=== PATIENT | female | born 1980 | race Caucasian/White ===

== ENCOUNTER 2020-11-27 13:25 | Emergency (ER) | payer SELFPAY ==
--- NOTE | 2020-11-27 13:38 | Event Note ---
ED Screening Note ED Screening Note: Patient presents with left flank pain that began yesterday She has associated nausea and vomiting she denies any history of kidney stones She denies any urinary symptoms Has medical history of insulin-dependent diabetes No medication allergies Currently on menstrual cycle This initial assessment/diagnostic orders/clinical plan/treatment(s) is/are subject to change based on patients health status, clinical progression and re- assessment by fellow clinical providers in the ED. Further treatment and workup at subsequent clinical providers discretion. Patient/guardian urged not to elope from the ED as their condition may be serious if not clinically assessed and managed. Initial orders include: Labs, urine
[2020-11-27 13:40] VITALS: BP 143/77
[2020-11-27 14:38] LABS: Basophils % (Auto) 0.3 % (0.0-1.8); Eosinophils # (Auto) 0.1 K/mm3 (0.0-0.4); Eosinophils % (Auto) 0.4 % (0.0-4.3); Hematocrit 38.6 % (30.3-42.9); Lymphocytes # (Auto) 1.3 K/mm3 (1.2-5.4); Lymphocytes % (Auto) 9.2 % (13.4-35.0); Mean Corpuscular HGB Conc 34 % (30-34); Mean Corpuscular Volume 95 fl (79-97); Monocytes # (Auto) 0.4 K/mm3 (0.0-0.8); Monocytes % (Auto) 2.8 % (0.0-7.3); Platelet Count 106 K/mm3 (140-440); Red Blood Count 4.06 M/mm3 (3.65-5.03); Red Cell Distribution Width 12.5 % (13.2-15.2)
[2020-11-27 16:42] LABS: Alanine Aminotransferase 11 units/L (7-56); Albumin 4.2 g/dL (3.9-5); Blood Urea Nitrogen 13 mg/dL (7-17); Calcium 9.2 mg/dL (8.4-10.2); Hemolysis Index 17
[2020-11-27 16:44] LABS: BUN/Creatinine Ratio 26
[2020-11-27 18:18] LABS: Bilirubin,Urine NEG (Negative); Blood,Urine MOD (Negative); Color,Urine Yellow (Yellow); Mucus,Urine FEW /HPF; Urobilinogen,Urine < 2.0 mg/dL (<2.0)
== END 2020-11-28 | disposition left against medical advice (07) ==
LOC: ED 13:25
DX: R11.2 Nausea with vomiting, unspecified (principal); Z53.21 Procedure and treatment not carried out due to patient leaving prior to being seen by health care provider
CPT/HCPCS: 36415; 80053; 81001; 83690; 84703; 85025; 87086

== ENCOUNTER 2022-02-01 05:33 | Inpatient (IN) | payer BC, OTHER ==
[2022-02-01] MEDS ORDERED: ASPIRIN 325 MG TAB PO ONE (05:59)
[2022-02-01 07:24] LABS: Basophils % (Auto) 0.4 % (0.0-1.8); Eosinophils # (Auto) 0.4 K/mm3 (0.0-0.4); Eosinophils % (Auto) 4.3 % (0.0-4.3); Hematocrit 27.2 % (30.3-42.9); Hemoglobin 9.2 gm/dl (10.1-14.3); Lymphocytes # (Auto) 2.7 K/mm3 (1.2-5.4); Lymphocytes % (Auto) 31.6 % (13.4-35.0); Mean Corpuscular HGB Conc 34 % (30-34); Mean Corpuscular Volume 94 fl (79-97); Monocytes # (Auto) 0.7 K/mm3 (0.0-0.8); Monocytes % (Auto) 8.8 % (0.0-7.3); Platelet Count 100 K/mm3 (140-440); Red Cell Distribution Width 12.3 % (13.2-15.2)
[2022-02-01 07:59] LABS: Alanine Aminotransferase 15 units/L (7-56); Albumin 3.8 g/dL (3.9-5); Blood Urea Nitrogen 14 mg/dL (7-17); Hemolysis Index 8
[2022-02-01 08:20] LABS: BUN/Creatinine Ratio 20
[2022-02-01 08:54] LABS: HDL Cholesterol 35 mg/dL (40-59); LDL Cholesterol,Direct 107 mg/dL (50-130)
[2022-02-01] MEDS: ASPIRIN 325 MG TAB PO ONE (09:26)
[2022-02-01] MEDS ORDERED: NITROGLYCERIN 0.4 MG TAB SUBL SL PRN (10:53)
[2022-02-01] MEDS ORDERED: MORPHINE 4 MG/1 ML INJ IV ONE (10:53)
[2022-02-01] MEDS ORDERED: ENOXAPARIN 100 MG/1 ML INJ SUB-Q ONE (10:56)
--- NOTE | 2022-02-01 11:05 | Emergency Department Report ---
ED General Adult HPI - General Chief complaint: Chest Pain Stated complaint: CHEST PAIN PUI?: No Time Seen by Provider: 02/01/22 10:19 Source: patient Mode of arrival: Ambulatory Limitations: No Limitations - History of Present Illness Initial comments: THIS IS A 41 YEAR OLD FEMALE WITH MEDICAL HISTORY OF DIABETES MELLITUS ON INS ULIN OF NOVOLOG 10U CAME IN TODAY WITH CONCERN OF 1 WEEK BURNING MID STERNAL CHEST DISCOMFORT; DENIES RADIATES ANYWHERE ELSE. DENIES ANY OTHER ASSOCIATED SYMPTOMS. STATES SHE WAS A SMOKER 20 YEARS AGO; NOT NOW. DENIES COCAIN USE. DENIES FAMILY WITH [place] <65 YEAR OLD. PATIENT STATES SHE CURRENTLY STILL HAS THE CHEST DISCOMFORT. - Related Data Home Medications Medication Instructions Recorded Confirmed Last Taken Atorvastatin (Nf) [Lipitor] 10 mg PO DAILY 11/23/13 11/23/13 11/23/13 11:30 Insulin Aspart (Nf) [Novolog 6 unit SUB-Q TID 11/23/13 11/23/13 11/23/13 11:30 Flexpen] Allergies Allergy/AdvReac Type Severity Reaction Status Date / Time No Known Allergies Allergy Verified 10/01/15 17:23 ED Review of Systems ROS: Stated complaint: CHEST PAIN Other details as noted in HPI Comment: All other systems reviewed and negative Constitutional: no symptoms reported Eyes: as per HPI ENT: as per HPI Respiratory: no symptoms reported Cardiovascular: as per HPI Endocrine: no symptoms reported Gastrointestinal: as per HPI Genitourinary: as per HPI Musculoskeletal: as per HPI Skin: as per HPI Neurological: as per HPI Psychiatric: as per HPI Hematological/Lymphatic: as per HPI ED Past Medical Hx - Past Medical History Previous Medical History?: Yes Hx Diabetes: Yes Additional medical history: HIGH CHOLESTEROL - Surgical History Hx Cholecystectomy: Yes Additional Surgical History: gall bladder surgery to remove stones. - Social History Smoking Status: Never Smoker Substance Use Type: None - Medications Home Medications: Home Medications Medication Instructions Recorded Confirmed Last Taken Type Atorvastatin (Nf) [Lipitor] 10 mg PO DAILY 11/23/13 11/23/13 11/23/13 11:30 History Insulin Aspart (Nf) [Novolog 6 unit SUB-Q TID 11/23/13 11/23/13 11/23/13 11:30 History Flexpen] ED Physical Exam - General Limitations: No Limitations General appearance: alert, in no apparent distress - Head Head exam: Present: atraumatic, normocephalic, normal inspection - Eye Eye exam: Present: normal appearance, PERRL, EOMI Pupils: Present: normal accommodation - ENT ENT exam: Present: normal exam, normal orophraynx - Neck Neck exam: Present: normal inspection, full ROM - Respiratory Respiratory exam: Present: normal lung sounds bilaterally - Cardiovascular Cardiovascular Exam: Present: regular rate, normal rhythm, normal heart sounds - GI/Abdominal GI/Abdominal exam: Present: soft - Extremities Exam Extremities exam: Present: normal inspection - Back Exam Back exam: Present: normal inspection - Neurological Exam Neurological exam: Present: alert, altered, oriented X3, CN II-XII intact, normal gait - Psychiatric Psychiatric exam: Present: normal affect, normal mood - Skin Skin exam: Present: warm ED Course Vital Signs 02/01/22 02/01/22 02/01/22 05:48 08:57 09:00 Temperature 98.0 F Pulse Rate 87 83 83 Respiratory 18 13 14 Rate Blood Pressure 110/68 O2 Sat by Pulse 100 100 100 Oximetry 02/01/22 02/01/22 02/01/22 09:16 09:30 09:46 Temperature Pulse Rate 75 79 78 Respiratory 16 20 9 L Rate Blood Pressure O2 Sat by Pulse 100 100 Oximetry 02/01/22 02/01/22 02/01/22 10:00 10:16 10:30 Temperature Pulse Rate 80 82 80 Respiratory 16 21 17 Rate Blood Pressure 113/76 113/76 113/76 O2 Sat by Pulse 99 99 100 Oximetry 02/01/22 02/01/22 10:46 11:00 Temperature Pulse Rate 79 82 Respiratory 14 18 Rate Blood Pressure 113/76 99/67 O2 Sat by Pulse 100 99 Oximetry - Reevaluation(s) Reevaluation #1: 02/01/22 11:[address] 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 SPOKE TO BELLA GAMBINO WHO SAW THE PATIENT, RECOMMEND ADMISSION AND LIKELY STRAIGHT TO CATH PATIENT STILL HAS CHEST DISCOMFORT WILL TALK TO [facility]. Reevaluation #2: 02/01/22 13:[address] SANCHEZ AT [facility] AND UNDERSTAND THAT PATIENT WITH ACTIVE CHEST PAIN; UNSTABLE ANGINA AND STATES UNDERSTANDABLE PATIENT WILL NEED TO GO TO ROOM SERVICE WAITER AND WILL CALL TOMORROW TO FOLLOW UP ON THE ROOM SERVICE WAITER RESULT. ED Medical Decision Making - Lab Data Result diagrams: 02/01/22 11:57 02/01/22 07:02 Critical Care Time: Yes Critical care time in (mins) excluding proc time.: 37 Critical care attestation.: If time is entered above; I have spent that time in minutes in the direct care of this critically ill patient, excluding procedure time. Critical Care Time: 37 ED Disposition Clinical Impression: NSTEMI (non-ST elevated myocardial infarction), Unstable angina Disposition: ADMITTED INPATIENT Is pt being admited?: Yes Does the pt Need Aspirin: Yes Condition: Stable
[2022-02-01] MEDS ORDERED: MORPHINE 4 MG/1 ML INJ IV PRN (11:30)
[2022-02-01] MEDS ORDERED: ACETAMINOPHEN 325 MG TAB PO PRN (11:30)
--- NOTE | 2022-02-01 11:33 | Consultation ---
History of Present Illness Consult date: 02/01/22 Requesting physician: CLARISSA KIM Consult reason: chest pain History of present illness: CC: Chest Pain This is a 41-year-old female, known to our practice, with past medical history significant for diabetes and tobacco abuse, who presents to the emergency department after 3 to 4 weeks of intermittent chest pain. She states that on 01/27/22 the pain was "really bad" however, she did not seek treatment at that time because she was scared. She presents today with similar complaints of midsternal, burning chest pain, that is nonradiating. She rates it a 6 out of 10 in severity. She has associated dizziness which has prompted her visit today. Otherwise denies nausea/vomiting, palpitations, syncope or collapse, orthopnea, PND, or bilateral lower extremity swelling. Work-up in the emergency department revealed EKG with sinus rhythm, consider old inferior infarct with some nonspecific ST-T wave abnormalities and anterolateral leads. No STEMI appreciated, as well as elevated troponin. Cardiology is consulted today for chest pain/NSTEMI Past History Past Medical History: diabetes Past Surgical History: cholecystectomy Social history: smoking Family history: no significant family history Medications and Allergies Allergies Allergy/AdvReac Type Severity Reaction Status Date / Time No Known Allergies Allergy Verified 10/01/15 17:23 Home Medications Medication Instructions Recorded Confirmed Last Taken Type Atorvastatin (Nf) [Lipitor] 10 mg PO DAILY 11/23/13 11/23/13 11/23/13 11:30 History Insulin Aspart (Nf) [Novolog 6 unit SUB-Q TID 11/23/13 11/23/13 11/23/13 11:30 History Flexpen] Active Meds: Active Medications Atorvastatin Calcium (Atorvastatin 40 Mg Tab) 40 mg PO QHS AUDI Heparin Sodium (Porcine) (Heparin 10,000 Units/10 Ml Vial) 3,700 unit 60 unit/kg (3700 unit) IV ONCE ONE Stop: 02/01/22 11:17 Heparin Sodium (Porcine) (Heparin 10,000 Units/10 Ml Vial) 2,400 unit 40 unit/kg (2400 unit) IV Q6H PRN PRN Reason: Anti-Xa Assay < 0.1 units/ml Sodium Chloride (Nacl 0.9% 1000 Ml) 1,000 mls @ 75 mls/hr IV ONCE ONE Stop: 02/02/22 00:34 Sodium Chloride (Nacl 0.9% 500 Ml) 500 mls @ 50 mls/hr IV DIRECT AUDI Stop: 02/01/22 21:59 Heparin Sodium/Sodium Chloride (Heparin/ 0.45% Nacl-25,000 Unit/500 Ml) 25,000 unit in 500 mls @ 18.371 mls/hr IV TITRATE AUDI; Protocol Sodium Chloride (Nacl 0.9% 1000 Ml) 1,000 mls @ 75 mls/hr IV DIRECT AUDI Nitroglycerin (Nitroglycerin 0.4 Mg Tab Subl) 0.4 mg SL .Q5MIN PRN PRN Reason: Chest Pain Nitroglycerin (Nitroglycerin 2% Oint 1 Gm) 0.5 inch TP ONCE ONE; Protocol Stop: 02/01/22 11:23 Review of Systems All systems: negative Cardiovascular: chest pain, lightheadedness, no palpitations, no rapid/irregular heart beat, no edema, no syncope, no shortness of breath, no dyspnea on exertion, no paroxysmal nocturnal dyspnea, no high blood pressure, no leg edema Respiratory: no cough, no cough with sputum Gastrointestinal: no nausea, no vomiting Physical Examination Vital Signs Temp Pulse Resp BP Pulse Ox 98.0 F 87 18 110/68 100 02/01/22 05:48 02/01/22 05:48 02/01/22 05:48 02/01/22 05:48 02/01/22 05:48 General appearance: no acute distress HEENT: Positive: EOMI, Normocephaly Neck: Positive: trachea midline Cardiac: Positive: Regular Rate, S1/S2. Negative: Audible Murmur Lungs: Positive: Normal Exam, clear to auscultation Neuro: Positive: Grossly Intact Abdomen: Positive: Unremarkable Female genitourinary: deferred Skin: Negative: Rash (no rash over inspected skin) Extremities: Present: normal. Absent: edema Results 02/01/22 07:02 02/01/22 07:02 Cardiac Enzymes 02/01/22 Range/Units 07:02 AST 16 (5-40) units/L Lipids 02/01/22 Range/Units 07:02 Triglycerides 125 (2-149) mg/dL Cholesterol 168 (50-199) mg/dL HDL Cholesterol 35 L (40-59) mg/dL Cholesterol/HDL Ratio 4.80 % CBC 02/01/22 Range/Units 07:02 WBC 8.5 (4.5-11.0) K/mm3 RBC 2.90 L (3.65-5.03) M/mm3 Hgb 9.2 L (10.1-14.3) gm/dl Hct 27.2 L (30.3-42.9) % Plt Count 100 L (140-440) K/mm3 Lymph # (Auto) 2.7 (1.2-5.4) K/mm3 [place] # (Auto) 0.7 (0.0-0.8) K/mm3 Eos # (Auto) 0.4 (0.0-0.4) K/mm3 Baso # (Auto) 0.0 (0.0-0.1) K/mm3 Comprehensive Metabolic Panel 02/01/22 Range/Units 07:02 Sodium 138 (137-145) mmol/L Potassium 3.5 L (3.6-5.0) mmol/L Chloride 102.4 (98-107) mmol/L Carbon Dioxide 24 (22-30) mmol/L BUN 14 (7-17) mg/dL Creatinine 0.7 (0.6-1.2) mg/dL Glucose 170 H (65-100) mg/dL Calcium 9.0 (8.4-10.2) mg/dL AST 16 (5-40) units/L ALT 15 (7-56) units/L Alkaline Phosphatase 63 (35-129) units/L Total Protein 7.3 (6.3-8.2) g/dL Albumin 3.8 L (3.9-5) g/dL - Imaging and Cardiology EKG: report reviewed, image reviewed EKG interpretations - Telemetry EKG Rhythm: Sinus Rhythm - EKG Sinus rhythms and dysrhythmias: sinus rhythm Repolarization changes or abnormalities: nonspecific abnormality, ST segment, and/or T wave Myocardial infarction: inferior SD (old age inde Assessment and Plan Assessment: NSTEMI - type 1 Chest Pain Anemia Thrombocytopenic - initial plt count 100 Tobacco Abuse DM H/o cholecystectomy EK02/01/2022 sinus rhythm, rate 84, consider old inferior infarct with some nonspecific ST-T wave abnormalities and anterolateral leads CXR: NONE Echocardiogram: Pending Cath: Pending in AM. Recommendations/plan: Check echocardiogram. EKG in am and as needed for change in condition. Initiate heparin gtt. Closely monitor H/H, PLT secondary to a nemia/thrombocytopenia Trend troponins. Initial troponins elevated at 0.879. NPO after midnight for LHC in am. Continue aspirin, statin. No BB secondary to hypotension IVF @ 75 /hr. Nitropaste as tolerated by BP. Morphine as tolerated by BP. Patient seen in conjunction with Dr. Hall who agrees with the assessment and management of this patient. - Patient Problems (1) Chest pain Current Visit: Yes Status: Acute (2) NSTEMI (non-ST elevated myocardial infarction) Current Visit: Yes Status: Acute (3) Diabetes Current Visit: Yes Status: Acute (4) Smoker Current Visit: Yes Status: Acute
--- NOTE | 2022-02-01 11:38 | History and Physical Report ---
History of Present Illness Chief complaint: My chest hurts History of present illness: 41 YO Female with DM, Nicotine Dependence, HLD, Positive family history of CAD presents to ED for evaluation. Pt reports "my chest hurts". Patient states that over the past 4 weeks she has experienced intermittent chest pain. Patient states that pain has become progressively worse over the past 2 days. Patient states that pain is 6-7/10, intermittent initially but has become more constant, worsened with exertion, relieved with rest, relieved with nitro, nonradiating, substernal, crushing in nature. Patient knowledges decreased exercise tolerance. Patient transported to [facility] via private vehicle for further care and evaluation of the aforementioned symptoms. Patient seen and evaluated in the emergency department. All lab and imaging studies reviewed. Patient found to have laboratory findings and clinical symptoms consistent with angina complicated by NSTEMI, as well as nonspecific EKG changes, and clinical symptoms consistent with diastolic CHF. Cardiology team consulted. Patient admitted to telemetry and initiated on ACS protocol as well as CHF protocol. Patient denies fever, chills, productive cough, skin rash, recent contact, unilateral leg swelling, calf pain, individual/family history of DVT/PE/bleeding/blood clotting disorders, or known exposure to COVID-19. No prior admission for review. All medication listed at time of admission has been reconciled. Advanced care planning conducted in ED. Past History Past Medical History: diabetes, hypertension, hyperlipidemia, other (See HPI) Past Surgical History: cholecystectomy Social history: single, smoking Family history: CAD, hypertension Medications and Allergies Allergies Allergy/AdvReac Type Severity Reaction Status Date / Time No Known Allergies Allergy Verified 10/01/15 17:23 Home Medications Medication Instructions Recorded Confirmed Last Taken Type Atorvastatin (Nf) [Lipitor] 10 mg PO DAILY 11/23/13 11/23/13 11/23/13 11:30 Hist ory Insulin Aspart (Nf) [Novolog 6 unit SUB-Q TID 11/23/13 11/23/13 11/23/13 11:30 History Flexpen] Active Meds: Active Medications Acetaminophen (Acetaminophen 325 Mg Tab) 650 mg PO Q4H PRN PRN Reason: Pain MILD(1-3)/Fever >100.5/[place] Albuterol (Albuterol 2.5 Mg/3 Ml Nebu) 2.5 mg IH Q4HRT PRN PRN Reason: Shortness Of Breath Atorvastatin Calcium (Atorvastatin 40 Mg Tab) 40 mg PO QHS AUDI Heparin Sodium (Porcine) (Heparin 10,000 Units/10 Ml Vial) 3,700 unit 60 unit/kg (3700 unit) IV ONCE ONE Stop: 02/01/22 11:17 Heparin Sodium (Porcine) (Heparin 10,000 Units/10 Ml Vial) 2,400 unit 40 unit/kg (2400 unit) IV Q6H PRN PRN Reason: Anti-Xa Assay < 0.1 units/ml Sodium Chloride (Nacl 0.9% 1000 Ml) 1,000 mls @ 75 mls/hr IV ONCE ONE Stop: 02/02/22 00:34 Sodium Chloride (Nacl 0.9% 500 Ml) 500 mls @ 50 mls/hr IV DIRECT AUDI Stop: 02/01/22 21:59 Heparin Sodium/Sodium Chloride (Heparin/ 0.45% Nacl-25,000 Unit/500 Ml) 25,000 unit in 500 mls @ 18.371 mls/hr IV TITRATE AUDI; Protocol Sodium Chloride (Nacl 0.9% 1000 Ml) 1,000 mls @ 75 mls/hr IV DIRECT AUDI Morphine Sulfate (Morphine 4 Mg/1 Ml Inj) 2 mg IV Q6H PRN PRN Reason: Pain , Severe (7-10) Nitroglycerin (Nitroglycerin 0.4 Mg Tab Subl) 0.4 mg SL .Q5MIN PRN PRN Reason: Chest Pain Nitroglycerin (Nitroglycerin 2% Oint 1 Gm) 0.5 inch TP ONCE@1200 AUDI; Protocol Stop: 02/01/22 17:00 Ondansetron HCl (Ondansetron 4 Mg/2 Ml Inj) 4 mg IV Q8H PRN PRN Reason: Nausea And Vomiting Oxycodone/Acetaminophen (Oxycodone /Acetaminophen 5-325mg Tab) 1 tab PO Q8H PRN PRN Reason: Pain, Moderate (4-6) Sodium Chloride (Sodium Chloride 0.9% 10 Ml Flush Syringe) 10 ml IV BID AUDI Sodium Chloride (Sodium Chloride 0.9% 10 Ml Flush Syringe) 10 ml IV PRN PRN PRN Reason: LINE FLUSH Review of Systems Constitutional: no weight loss, no weight gain, no fever, no chills Ears, nose, mouth and throat: no ear pain, no ear discharge, no tinnitis, no nose pain, no nasal congestion Cardiovascular: chest pain, decreased exercise tolerance Respiratory: no cough, no cough with sputum, no excessive sputum, no hemoptysis Gastrointestinal: no abdominal pain, no nausea, no diarrhea, no constipation, no change in bowel habits, no hematemesis Genitourinary Female: no pelvic pain, no flank pain, no dysuria, no urinary frequency, no urgency Rectal: no pain, no incontinence, no bleeding Musculoskeletal: no neck stiffness, no neck pain, no shooting arm pain, no arm numbness/tingling, no low back pain, no shooting leg pain, no leg numbness/tingling Integumentary: no rash, no pruritis, no redness, no sores, no jaundice Neurological: no head injury, no transient paralysis, no weakness, no numbness, no tingling, no syncope, no tremors Psychiatric: no anxiety, no memory loss, no change in sleep habits, no insomnia, no hypersomnia, no change in libido, no suicidal ideation Endocrine: no cold intolerance, no heat intolerance, no polydipsia, no nocturia, no excessive sweating Hematologic/Lymphatic: no easy bruising, no easy bleeding Allergic/Immunologic: no urticaria, no allergic rhinitis Exam - Constitutional Vitals: Temp Pulse Resp BP Pulse Ox 98.0 F 82 18 99/67 99 02/01/22 05:48 02/01/22 11:00 02/01/22 11:00 02/01/22 11:00 02/01/22 11:00 General appearance: Present: mild distress - EENT Eyes: Present: PERRL ENT: hearing intact, clear oral mucosa - Neck Neck: Present: supple, normal ROM - Respiratory Respiratory effort: normal Respiratory: bilateral: CTA - Cardiovascular Heart Sounds: Present: S1 & S2. Absent: rub, click - Extremities Extremities: pulses symmetrical, No edema Peripheral Pulses: within normal limits - Abdominal General gastrointestinal: Present: soft, non-tender, non-distended, normal bowel sounds Female genitourinary: Present: normal - Integumentary Integumentary: Present: clear, warm, dry - Musculoskeletal Musculoskeletal: gait normal, strength equal bilaterally - Psychiatric Psychiatric: appropriate mood/affect, intact judgment & insight - Neurologic Neurologic: CNII-XII intact, moves all extremities HEART Score - HEART Score Troponin: Troponin T 0.854 ng/mL (0.00-0.029) H* 02/01/22 07:02 Troponin T 0.879 ng/mL (0.00-0.029) H* 02/01/22 07:02 Results - Labs CBC & Chem 7: 02/01/22 07:02 02/01/22 07:02 Labs: Abnormal lab results 02/01/22 02/01/22 02/01/22 Range/Units 07:02 07:02 07:02 RBC 2.90 L (3.65-5.03) M/mm3 Hgb 9.2 L (10.1-14.3) gm/dl Hct 27.2 L (30.3-42.9) % RDW 12.3 L (13.2-15.2) % Plt Count 100 L (140-440) K/mm3 [place] % (Auto) 8.8 H (0.0-7.3) % Potassium 3.5 L (3.6-5.0) mmol/L Glucose 170 H (65-100) mg/dL Troponin T 0.879 H* 0.854 H* (0.00-0.029) ng/mL Albumin 3.8 L (3.9-5) g/dL HDL Cholesterol 35 L (40-59) mg/dL Assessment and Plan - Patient Problems (1) NSTEMI (non-ST elevated myocardial infarction) Current Visit: Yes Status: Acute Plan to address problem: ACS protocol: Serial cardiac enzymes, EKG, telemetry, therapeutic anticoagulation, cardiology team consulted in ED, further care and evaluation as per cardiology team. Morphine, submental oxygen, nitro, aspirin. (2) Angina at rest Current Visit: Yes Status: Acute Plan to address problem: ACS protocol: Serial cardiac enzymes, EKG, telemetry monitoring, morphine, submental oxygen, nitro, aspirin. (3) Diastolic CHF Current Visit: Yes Status: Acute Qualifiers: Heart failure chronicity: acute Qualified Code(s): I50.31 - Acute diastolic (congestive) heart failure Plan to address problem: Strict I's/O, monitor urine output every shift, daily weight, afterload reduction, blood pressure control, echocardiogram ordered and pending at time of admission. (4) Nicotine dependence Current Visit: Yes Status: Acute Qualifiers: Nicotine product type: cigarettes Substance use status: in withdrawal Qualified Code(s): F17.213 - Nicotine dependence, cigarettes, with withdrawal Plan to address problem: Smoking cessation counseling, supportive care, behavior change counseling, +15 minutes. (5) Hyperlipidemia Current Visit: Yes Status: Acute Qualifiers: Hyperlipidemia type: mixed hyperlipidemia Qualified Code(s): E78.2 - Mixed hyperlipidemia Plan to address problem: Low-cholesterol diet, risk factor reduction, supportive care. Statin therapy as clinically indicated. (6) Diabetes Current Visit: Yes Status: Acute Plan to address problem: Consistent carbohydrate diet, Accu-Chek, insulin protocol, hypoglycemia prot ocol, supportive care. (7) DVT prophylaxis Current Visit: Yes Status: Acute Plan to address problem: SCD to bilateral lower extremities while in bed, therapeutic anticoagulation. (8) Advance care planning Current Visit: Yes Status: Acute Plan to address problem: Disease education conducted, care plan discussed, diagnoses discussed, prognosis discussed, patient is full code. Patient knowledges understanding and agreement with care plan, +30 minutes. (9) Preventative health care Current Visit: Yes Status: Acute Plan to address problem: Patient counseled regarding low-cholesterol diet, risk factor reduction, outpatient follow-up with primary care physician for all age and risk factor appropriate screening test. Patient also instructed to take multivitamin daily and follow-up with SPECIAL DUTY NURSE as outpatient for well check. +30 minutes.
[2022-02-01] MEDS ORDERED: SODIUM CHLORIDE 0.9% 500 ML 500 ML IV SCH (12:00)
[2022-02-01] MEDS ORDERED: HEPARIN/ 0.45% NACL DRIP 25,000 UNIT/500 ML BAG IV SCH (12:00)
[2022-02-01] MEDS ORDERED: ONDANSETRON 4 MG/2 ML INJ IV PRN (12:00)
[2022-02-01] MEDS ORDERED: oxyCODONE /ACETAMINOPHEN 5-325MG TAB PO PRN (12:00)
[2022-02-01] MEDS ORDERED: NITROGLYCERIN 2% OINT 1 GM TP SCH (12:00)
[2022-02-01] MEDS ORDERED: HEPARIN 10,000 UNITS/10 ML VIAL IV PRN (12:00)
[2022-02-01] MEDS ORDERED: HEPARIN 10,000 UNITS/10 ML VIAL IV SCH (12:00)
[2022-02-01] MEDS ORDERED: ALBUTEROL 2.5 MG/3 ML NEBU IH PRN (12:00)
[2022-02-01] MEDS ORDERED: MORPHINE 2 MG/1 ML INJ IV PRN (12:00)
[2022-02-01] MEDS: SODIUM CHLORIDE 0.9% 1000 ML 1,000 ML IV SCH (12:04)
[2022-02-01] MEDS: SODIUM CHLORIDE 0.9% 1000 ML 1,000 ML IV ONE (12:13)
[2022-02-01 12:24] LABS: Hematocrit 27.7 % (30.3-42.9); Hemoglobin 9.3 gm/dl (10.1-14.3)
--- NOTE | 2022-02-01 12:42 | XRay Report ---
CHEST 1 VIEW INDICATION: CHEST PAIN. COMPARISON: None FINDINGS: SUPPORT DEVICES: None. HEART: Within normal limits. LUNGS/PLEURA: No acute air space or interstitial disease. ADDITIONAL FINDINGS: None. IMPRESSION: 1. No acute findings. Signer Name: Idris Kim MD Signed: 02/01/2022 12:38 PM Workstation Name: [id number]
[2022-02-01 12:43] LABS: INR 0.91 (0.87-1.13)
[2022-02-01 12:44] LABS: Partial Thromboplastin Time 33.8 Sec. (24.2-36.6)
[2022-02-02 04:54] LABS: Basophils % (Auto) 0.2 % (0.0-1.8); Eosinophils # (Auto) 0.3 K/mm3 (0.0-0.4); Eosinophils % (Auto) 3.8 % (0.0-4.3); Hematocrit 24.6 % (30.3-42.9); Hemoglobin 8.3 gm/dl (10.1-14.3); Lymphocytes # (Auto) 3.6 K/mm3 (1.2-5.4); Lymphocytes % (Auto) 45.5 % (13.4-35.0); Mean Corpuscular HGB Conc 34 % (30-34); Mean Corpuscular Volume 93 fl (79-97); Monocytes # (Auto) 0.6 K/mm3 (0.0-0.8); Monocytes % (Auto) 7.7 % (0.0-7.3); Red Blood Count 2.64 M/mm3 (3.65-5.03); Red Cell Distribution Width 12.2 % (13.2-15.2)
[2022-02-02 05:05] LABS: INR 1.03 (0.87-1.13); Platelet Count 99 K/mm3 (140-440)
[2022-02-02 05:10] LABS: Blood Urea Nitrogen 8 mg/dL (7-17); Calcium 8.4 mg/dL (8.4-10.2); Hemolysis Index 1
[2022-02-02 05:11] LABS: BUN/Creatinine Ratio 16
[2022-02-02] MEDS: ASPIRIN 325 MG TAB PO ONE (05:15)
[2022-02-02] MEDS: SODIUM CHLORIDE 0.9% 1000 ML 1,000 ML IV ONE (05:16)
[2022-02-02] MEDS ORDERED: POTASSIUM CHLORIDE 10 MEQ 10 MEQ/100 ML BAG IV ONE (06:20)
[2022-02-02] MEDS ORDERED: ASPIRIN EC 325 MG TAB PO ONE (08:10)
[2022-02-02] MEDS ORDERED: HEPARIN/NS 5000 UNIT/500ML 1,000 ML IR ONE (08:12)
[2022-02-02] MEDS ORDERED: MIDAZOLAM 2 MG/2 ML INJ ONE (08:12)
[2022-02-02] MEDS ORDERED: LIDOCAINE (2%) 20 MG/1 ML VIAL 50 ML MDV INFILTRATI ONE (08:13)
[2022-02-02] MEDS ORDERED: NITROGLYCERIN SYRINGE 3 ML ONE (08:13)
[2022-02-02] MEDS: SODIUM CHLORIDE 0.9% 1000 ML 1,000 ML IV SCH (08:45)
[2022-02-02] MEDS: fentaNYL 100 MCG/2 ML INJ ONE ×2 (08:46→08:52)
[2022-02-02] MEDS: LIDOCAINE (1%) 10 MG/1 ML VIAL 20 ML MDV ONE ×2 (08:47→08:53)
[2022-02-02] MEDS: VERAPAMIL 5 MG/2 ML INJ ONE ×2 (08:53→19:08)
[2022-02-02] MEDS: HEPARIN 10,000 UNITS/10 ML VIAL ONE ×2 (08:53→12:00)
[2022-02-02] MEDS ORDERED: ASPIRIN 81 MG TAB CHEW PO SCH (10:00)
[2022-02-02] MEDS ORDERED: METOPROLOL SUCCINATE XL 25 MG TAB PO SCH (10:00)
[2022-02-02] MEDS ORDERED: traMADol 50 MG TAB PO PRN (10:00)
--- NOTE | 2022-02-02 10:25 | Progress Note ---
Assessment and Plan This is a 41-year-old female, known to our practice, with past medical history significant for diabetes and tobacco abuse, who presents to the emergency department after 3 to 4 weeks of intermittent chest pain. NSTEMI - type 1 Chest Pain Acute diastolic dysfunction CAD Anemia Thrombocytopenic - initial plt count 100 Tobacco Abuse Uncontrolled DM H/o cholecystectomy Plan: Patient found to have 99% occlusion in circumflex and disease in LAD. See cath report for full details Patient to be transferred to [place]. Accepting physician is Dr. Woods Echocardiogram pending Resume heparin gtt this afternoon. Closely monitor H/H, PLT secondary to anemia/thrombocytopenia Continue aspirin, statin. Initiate metoprolol XL 25mg PO QD Patient seen in conjunction with Dr. Hall who agrees with the assessment and management of this patient. - Patient Problems (1) Anemia Current Visit: Yes Status: Acute (2) Thrombocytopenia Current Visit: Yes Status: Acute (3) Coronary artery disease Current Visit: Yes Status: Acute (4) Diabetes Current Visit: Yes Status: Acute (5) Diastolic CHF Current Visit: Yes Status: Acute Qualifiers: Heart failure chronicity: acute Qualified Code(s): I50.31 - Acute diastolic (congestive) heart failure (6) Hyperlipidemia Current Visit: Yes Status: Acute Qualifiers: Hyperlipidemia type: mixed hyperlipidemia Qualified Code(s): E78.2 - Mixed hyperlipidemia (7) NSTEMI (non-ST elevated myocardial infarction) Current Visit: Yes Status: Acute (8) Smoker Current Visit: Yes Status: Acute Subjective Date of service: 02/02/22 Principal diagnosis: NSTEMI Interval history: Patient for cardiac cath this a.m. Sinus 70s to 80s on monitor no events Objective Vital Signs Temp Pulse Resp BP BP Pulse Ox 02/02/22 10:11 97 02/02/22 03:03 96 02/02/22 02:33 98.4 F 83 18 110/66 98 02/02/22 00:00 92 H 02/01/22 23:49 87 20 104/57 96 02/01/22 22:55 86 20 102/65 98 02/01/22 22:15 98.2 F 91 H 18 97/60 93 02/01/22 21:24 20 02/01/22 20:50 99 02/01/22 20:21 98.3 F 91 H 20 116/71 97 02/01/22 16:57 80 06/21/22 16:24 79 100 02/01/22 15:45 80 18 108/54 97 02/01/22 15:31 84 12 114/68 99 02/01/22 15:25 78 116/78 02/01/22 15:15 79 15 107/68 98 02/01/22 15:01 79 15 108/54 99 02/01/22 14:45 81 18 104/66 99 02/01/22 14:31 80 13 107/68 98 02/01/22 14:15 86 14 104/66 98 02/01/22 14:01 81 10 L 104/66 97 02/01/22 14:00 100 02/01/22 13:45 83 14 101/58 98 02/01/22 13:31 74 16 106/66 97 02/01/22 13:15 79 17 106/66 97 02/01/22 13:01 87 18 101/58 99 02/01/22 12:45 78 12 106/66 99 02/01/22 12:31 80 32 H 106/66 99 02/01/22 12:15 89 14 119/77 02/01/22 12:01 86 10 L 119/77 100 02/01/22 11:46 86 12 119/77 100 02/01/22 11:30 86 12 119/77 100 02/01/22 11:16 83 11 L 144/91 100 02/01/22 11:00 82 18 99/67 99 02/01/22 10:46 79 14 113/76 100 02/01/22 10:30 80 17 113/76 100 - Physical Examination General: No Apparent Distress HEENT: Positive: EOMI, Normocephaly Neck: Positive: trachea midline Cardiac: Positive: Reg Rate and Rhythm Lungs: Positive: Normal Breath Sounds Neuro: Positive: Grossly Intact Abdomen: Positive: Unremarkable Skin: Negative: Rash (no rash over inspected skin) Extremities: Present: normal. Absent: edema - Labs and Meds Coagulation 02/01/22 02/02/22 Range/Units 11:57 04:09 PT 13.2 14.6 (12.2-14.9) Sec. INR 0.91 1.03 (0.87-1.13) APTT 33.8 (24.2-36.6) Sec. CBC 02/01/22 02/02/22 Range/Units 11:57 04:09 WBC 7.9 (4.5-11.0) K/mm3 RBC 2.64 L (3.65-5.03) M/mm3 Hgb 9.3 L 8.3 L (10.1-14.3) gm/dl Hct 27.7 L 24.6 L (30.3-42.9) % Plt Count 102 L 99 L (140-440) K/mm3 Lymph # (Auto) 3.6 (1.2-5.4) K/mm3 [place] # (Auto) 0.6 (0.0-0.8) K/mm3 Eos # (Auto) 0.3 (0.0-0.4) K/mm3 Baso # (Auto) 0.0 (0.0-0.1) K/mm3 Comprehensive Metabolic Panel 02/02/22 Range/Units 04:09 Sodium 138 (137-145) mmol/L Potassium 3.3 L (3.6-5.0) mmol/L Chloride 104.5 (98-107) mmol/L Carbon Dioxide 24 (22-30) mmol/L BUN 8 (7-17) mg/dL Creatinine 0.5 L (0.6-1.2) mg/dL Glucose 129 H (65-100) mg/dL Calcium 8.4 (8.4-10.2) mg/dL - Imaging and Cardiology EKG: report reviewed, image reviewed - Telemetry EKG Rhythm: Sinus Rhythm - EKG Sinus rhythms and dysrhythmias: sinus rhythm Repolarization changes or abnormalities: nonspecific abnormality, ST segment, and/or T wave Myocardial infarction: inferior HI (old age inde
--- NOTE | 2022-02-02 12:38 | Discharge Summary ---
Providers - Providers Date of Admission: 02/01/22 11:30 Date of discharge: 02/02/22 Attending physician: GOLDIE CALLOWAY 02/01/22 11:24 Consult to Physician [CONS] Routine Comment: Consulting Provider: DAMION GEORGE Physician Instructions: Reason For Exam: NSTEMI 02/02/22 09:07 Consult to Cardiac Rehabilitation [CONS] Routine Reason For Exam: Cardiac Rehab Evaluation Primary care physician: CARMEN ONEIL Hospitalization Condition: Stable Hospital course: This is a 41-year-old female, known to our practice, with past medical history significant for diabetes and tobacco abuse, who presents to the emergency department after 3 to 4 weeks of intermittent chest pain. She noted to have elevated troponin, placed on heparin drip and admitted to hospital for further evaluation. Cardiology was consulted and patient had coronary angiogram. Patient found to have 99% occlusion in circumflex and disease in LAD. Resumed heparin gtt this afternoon after an angiogram. Patient to be transferred to [place]. Accepting physician is Dr. Woods.Closely monitor H/H, PLT secondary to anemia/thrombocytopenia. Continue aspirin, statin. Initiated metoprolol XL 25mg PO QD. Disposition: 02 SHORT TERM HOSPITAL Final Discharge Diagnosis (Prints w/discharge instructions): --NSTEMI type 1. --CAD with unstable angina. --DM on Insulin. -- HLD. --New onset systolic CHFrEf 40-45%. --Tobacco abuse. --Thrombocytopenia Time spent for discharge: 34 minutes Core Measure Documentation - Palliative Care Palliative Care/ Comfort Measures: Not Applicable - Core Measures Any of the following diagnoses?: none Exam - Physical Exam Narrative exam: GENERAL: well-developed and well-nourished WF lying on bed appeared to be in no discomfort. HEENT: Normocephalic. Atraumatic. No conjunctival congestion or icterus. Patient has moist mucous membranes. NECK: Supple. Trachea midline. CHEST/LUNGS: Clear to auscultated bilaterally, breathing nonlabored. No wheezes crackles or rhonchi. HEART/CARDIOVASCULAR: Regular in rate and rhythm. S1 and S2 positive. ABDOMEN: Abdomen is soft, nontender. Patient has normal bowel sounds. SKIN: There is no rash. Warm and dry. NEURO: No focal motor deficit. Follows command. MUSCULOSKELETAL: No joint effusion or tenderness. EXTRIMITY: No edema, no cyanosis or clubbing. PSYCH: Cooperative. - Constitutional Vitals: Temp Pulse Resp BP Pulse Ox 98.0 F 80 16 105/64 98 02/02/22 11:21 02/02/22 11:21 02/02/22 11:21 02/02/22 11:21 02/02/22 11:21 Plan Diet: low fat, low salt Additional Instructions: cont heparin drip on discharge Follow up with: CARMEN ONEIL MD [Primary Care Provider] - 3-5 Days
[2022-02-02] MEDS ORDERED: HEPARIN 10,000 UNITS/10 ML VIAL IV PRN (15:00)
[2022-02-02] MEDS ORDERED: HEPARIN/ 0.45% NACL DRIP 25,000 UNIT/500 ML BAG IV SCH (15:00)
[2022-02-02 16:00] VITALS: BP 99/58
[2022-02-02 16:03] LABS: Hemoglobin 8.2 gm/dl (10.1-14.3)
[2022-02-02 16:12] LABS: INR 0.91 (0.87-1.13); Partial Thromboplastin Time 30.1 Sec. (24.2-36.6)
--- NOTE | 2022-02-03 12:09 | Cardiac Catherization Report ---
DATE OF SERVICE: 02/02/2022 LEFT HEART CATHETERIZATION CLINICAL INFORMATION: This is a 41-year-old female with uncontrolled diabetes, presents with [id number] FL and acute systolic and diastolic dysfunction and heart failure, is here for a left heart catheterization. Procedure was done with moderate sedation, started at 8:46 and finished at 9:03. There is 17 minutes of moderate sedation. DESCRIPTION OF PROCEDURE: Initially tried via the right radial approach, unable to cannulate the right radial artery, so procedure was done via the right common femoral artery, sterile technique and local anesthesia. A 6-Singaporean groin sheath inserted. The left system engaged with JL3.5 catheter. Left main is a ubtenz-qg-rduov caliber vessel, was patent. LAD is a medium caliber vessel, proximal patent and bifurcates into a medium caliber diagonal, has an ostial 90% and at the bifurcation, LAD has a 90% lesion. Rest of the LAD is patent. Circumflex is a medium caliber vessel, then it tapers down to the mid-circumflex small caliber 2.25 mm, 99% lesion, bifurcates into an OM1 and distal circumflex. OM1 is approximately the same vessel size. The RCA engaged with JR4, is a grevp-uk-ptbrrw caliber vessel, it was patent with mild luminal irregularities. LV gram done in SKYLER and LIZ view shows borderline LV function, EF 45-50%. LVEDP at 30 mmHg, LV is 130. Aortic is 124/74. No gradient across the aortic valve on a pullback. The 5-Singaporean catheter was all taken over a guidewire. A 6-Singaporean groin sheath discontinued, and manual pressure held. No hematoma, no bleeding. SUMMARY: 1. Three-vessel coronary artery disease with bifurcation lesions with diabetes. Left main patent, LAD proximal patent, mid 90%, diagonal ostial 90%, circumflex mid 99%. RCA patent. 2. We will transfer to [place] for robotic REY to LAD and PCI of diagonal and PCI of circumflex. Discussed this with the patient in detail. TID: [id number] RECEIPT: [id number] EZIO/SHARIF/MARCO
--- NOTE | 2022-02-03 18:51 | Electrocardiograph Report ---
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
--- NOTE | 2022-02-03 19:01 | Electrocardiograph Report ---
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
--- NOTE | 2022-02-03 19:04 | Electrocardiograph Report ---
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
== END 2022-02-02 20:00 | disposition short-term general hospital (02) | DRG 280 ==
LOC: ED 05:33 → 4A 11:30
PROVIDERS: ADMIT Internal Medicine; ATTEND Internal Medicine
PROC: 4A023N7 Measurement of Cardiac Sampling and Pressure, Left Heart, Percutaneous Approach (ICD-10-PCS; principal; 2022-02-02)
PROC: B2151ZZ Fluoroscopy of Left Heart using Low Osmolar Contrast (ICD-10-PCS; 2022-02-02)
PROC: B2111ZZ Fluoroscopy of Multiple Coronary Arteries using Low Osmolar Contrast (ICD-10-PCS; 2022-02-02)
DX: I21.4 Non-ST elevation (NSTEMI) myocardial infarction (principal); I50.31 Acute diastolic (congestive) heart failure; F17.213 Nicotine dependence, cigarettes, with withdrawal; I25.110 Atherosclerotic heart disease of native coronary artery with unstable angina pectoris; E11.8 Type 2 diabetes mellitus with unspecified complications; E11.9 Type 2 diabetes mellitus without complications; E78.00 Pure hypercholesterolemia, unspecified; E78.2 Mixed hyperlipidemia; D64.9 Anemia, unspecified; I11.0 Hypertensive heart disease with heart failure; D69.6 Thrombocytopenia, unspecified; Z82.49 Family history of ischemic heart disease and other diseases of the circulatory system; Z90.49 Acquired absence of other specified parts of digestive tract; Z79.4 Long term (current) use of insulin
CPT/HCPCS: 36415; 71045; 80048; 80053; 80061; 82962; 84484; 84702; 85014; 85018; 85025; 85049; 85520; 85610; 85730; 86850; 86900; 86901; 93005; 93306; 93458; G0378; J1815; J3490; C1894; C8929; J1644; J1650; J2250; J2270; J3010; J3480; J7030; Q9967

== ENCOUNTER 2022-03-20 12:54 | Emergency (ER) | payer OTHER ==
--- NOTE | 2022-03-20 13:17 | Emergency Department Report ---
Blank Doc - Documentation Documentation: 41-year-old female that presents with left lateral chest wall drainage pain and swelling to the surgical site. Patient had a surgical procedure in [place] for coronary artery bypass graft. 1- This is a initial triage assessment/medical screening only. Full assessment and work-up will be completed once the patient is in proper hospital gown, ED bed and in a private room setting. This initial assessment/diagnostic orders/clinical plan/ treatment(s) is/are subject to change based on pt's health status, clinical progression and re-assessment by fellow clinical providers in the ED. Further treatment and workup at subsequent clinical providers discretion. Patient/guardians urged not to elope from ED as their condition may be serious if not clinically assessed and managed. 2-labs The patient was evaluated in the emergency department for symptoms described in the history of present illness. He/she was evaluated in the context of the global COVID-19 pandemic, which necessitated consideration that the patient might be at risk for infection with the virus that causes COVID-19. Institutional protocols and algorithms that pertain to the evaluation of patients at risk for COVID-19 are in a state of rapid change based on information released by regulatory bodies including the CDC and federal and state organizations. These policies and algorithms were followed during the patient's care in the emergency department. Please note that these policies, procedures and recommendations changed on a rapid basis.
[2022-03-20 13:51] LABS: Basophils % (Auto) 0.3 % (0.0-1.8); Eosinophils # (Auto) 0.5 K/mm3 (0.0-0.4); Eosinophils % (Auto) 5.7 % (0.0-4.3); Hematocrit 34.7 % (30.3-42.9); Hemoglobin 11.6 gm/dl (10.1-14.3); Lymphocytes # (Auto) 2.6 K/mm3 (1.2-5.4); Mean Corpuscular HGB Conc 34 % (30-34); Mean Corpuscular Volume 90 fl (79-97); Monocytes # (Auto) 0.7 K/mm3 (0.0-0.8); Monocytes % (Auto) 7.8 % (0.0-7.3); Platelet Count 110 K/mm3 (140-440); Red Blood Count 3.85 M/mm3 (3.65-5.03); Red Cell Distribution Width 15.5 % (13.2-15.2)
[2022-03-20 14:23] LABS: Alanine Aminotransferase 35 units/L (7-56); Albumin 3.8 g/dL (3.9-5); Blood Urea Nitrogen 14 mg/dL (7-17); Calcium 9.1 mg/dL (8.4-10.2); Hemolysis Index 9
[2022-03-20 14:34] LABS: BUN/Creatinine Ratio 20
[2022-03-20] MEDS ORDERED: MORPHINE 4 MG/1 ML INJ IV ONE (16:14)
--- NOTE | 2022-03-20 16:20 | Emergency Department Report ---
- General Chief Complaint: Laceration/Recheck/Suture Stated Complaint: POST OP SURGERY COMPLICATIONS(HEART) Time Seen by Provider: 03/20/22 13:15 Source: patient Mode of arrival: Ambulatory Limitations: No Limitations - History of Present Illness Initial Comments: Patient is a 41-year-old female presenting to ED with complaint of wound dehiscence to left chest from an incision during heart procedure at [facility] on 02/07/2022. States she noticed the wound was open yesterday and noted pain to the area along with yellowish drainage. She denies any fever or chills. - Related Data Previous Rx's Medication Instructions Recorded Last Taken Type ALBUTEROL NEB's [Proventil 0.083% 2.5 mg IH Q4HRT PRN nebu 02/02/22 Unknown Rx NEBS] Acetaminophen [Acetaminophen TAB] 650 mg PO Q4H PRN tablet 02/02/22 Unknown Rx Aspirin [Aspirin BABY CHEW TAB] 81 mg PO QDAY tab.chew 02/02/22 Unknown Rx AtorvaSTATin [Lipitor] 40 mg PO QHS tablet 02/02/22 Unknown Rx Metoprolol Xl [Metoprolol 25 mg PO QDAY tablet 02/02/22 Unknown Rx SUCCINATE ER TAB] Nitroglycerin [Nitrostat] 0.4 mg SL .Q5MIN PRN tablet 02/02/22 Unknown Rx HYDROcodone/APAP 5-325 [Bethany 1 each PO Q6HR PRN #12 tablet 03/20/22 Unknown Rx 5/325] Allergies Allergy/AdvReac Type Severity Reaction Status Date / Time No Known Allergies Allergy Verified 10/01/15 17:23 ED Review of Systems ROS: Stated complaint: POST OP SURGERY COMPLICATIONS(HEART) Other details as noted in HPI Constitutional: denies: chills, fever Respiratory: denies: cough, shortness of breath, wheezing Cardiovascular: denies: chest pain, palpitations Gastrointestinal: denies: abdominal pain, nausea, diarrhea Genitourinary: denies: urgency, dysuria, discharge Musculoskeletal: denies: back pain, joint swelling, arthralgia Skin: other Neurological: denies: headache, weakness, paresthesias Psychiatric: denies: anxiety, depression ED Past Medical Hx - Past Medical History Hx Diabetes: Yes Additional medical history: HIGH CHOLESTEROL - Surgical History Hx Open Heart Surgery: Yes (CABG 02/07/2022) Hx Cholecystectomy: Yes Additional Surgical History: gall bladder surgery to remove stones. - Social History Smoking Status: Never Smoker - Medications Home Medications: Home Medications Medication Instructions Recorded Confirmed Last Taken Type ALBUTEROL NEB's [Proventil 0.083% 2.5 mg IH Q4HRT PRN nebu 02/02/22 Unknown Rx NEBS] Acetaminophen [Acetaminophen TAB] 650 mg PO Q4H PRN tablet 02/02/22 Unknown Rx Aspirin [Aspirin BABY CHEW TAB] 81 mg PO QDAY tab.chew 02/02/22 Unknown Rx AtorvaSTATin [Lipitor] 40 mg PO QHS tablet 02/02/22 Unknown Rx Metoprolol Xl [Metoprolol 25 mg PO QDAY tablet 02/02/22 Unknown Rx SUCCINATE ER TAB] Nitroglycerin [Nitrostat] 0.4 mg SL .Q5MIN PRN tablet 02/02/22 Unknown Rx HYDROcodone/APAP 5-325 [Bethany 1 each PO Q6HR PRN #12 tablet 03/20/22 Unknown Rx 5/325] ED Physical Exam - General Limitations: No Limitations General appearance: alert, in no apparent distress - Head Head exam: Present: atraumatic, normocephalic - Respiratory Respiratory exam: Present: normal lung sounds bilaterally. Absent: respiratory distress - Cardiovascular Cardiovascular Exam: Present: regular rate, normal rhythm, normal heart sounds - GI/Abdominal GI/Abdominal exam: Present: soft. Absent: distended, tenderness - Neurological Exam Neurological exam: Present: alert, oriented X3 - Psychiatric Psychiatric exam: Present: normal affect, normal mood - Skin Skin exam: Present: warm, dry, other (Wound dehiscence involving surgical incision under the left breast with moderate yellowish exudate. There is no foul odor or redness around the area.) ED Course Vital Signs 03/20/22 03/20/22 13:24 16:46 Temperature 98.4 F 98.2 F Pulse Rate 90 76 Respiratory 18 17 Rate Blood Pressure 122/79 133/77 [Right] O2 Sat by Pulse 100 100 Oximetry ED Medical Decision Making - Lab Data Result diagrams: 03/20/22 13:26 03/20/22 13:26 - Medical Decision Making CBC, CMP grossly unremarkable. Chest x-ray is normal. Vital signs are stable. Patient given IV morphine for pain. Wound cleaned and dressed. Patient instructed to contact her surgeon tomorrow for follow-up. Critical care attestation.: If time is entered above; I have spent that time in minutes in the direct care of this critically ill patient, excluding procedure time. ED Disposition Clinical Impression: Postoperative wound dehiscence Disposition: 01 HOME / SELF CARE / HOMELESS Is pt being admited?: No Does the pt Need Aspirin: No Condition: Stable Instructions: Wound Dehiscence, [id number] Additional Instructions: Please contact your surgeon tomorrow to arrange follow-up appointment. Keep your wound clean and dressed. You may return if your symptoms worsen.
[2022-03-20 16:53] VITALS: BP 133/77
--- NOTE | 2022-03-20 17:12 | XRay Report ---
CHEST 1 VIEW INDICATION: Wound to chest. COMPARISON: 02/01/2022 FINDINGS: SUPPORT DEVICES: None. HEART: Within normal limits. LUNGS/PLEURA: Hazy airspace opacity over the left midlung. No pneumothorax or pleural effusion. Clear right lung. ADDITIONAL FINDINGS: None. IMPRESSION: 1. Lung findings as above. Signer Name: Idris Kim MD Signed: 03/20/2022 5:08 PM Workstation Name: [id number]
== END 2022-03-20 17:25 | disposition home or self-care (01) ==
LOC: ED 12:54
DX: T81.31XA Disruption of external operation (surgical) wound, not elsewhere classified, initial encounter (principal); E11.9 Type 2 diabetes mellitus without complications; E78.00 Pure hypercholesterolemia, unspecified; Z90.49 Acquired absence of other specified parts of digestive tract; Z79.899 Other long term (current) drug therapy; Y83.8 Other surgical procedures as the cause of abnormal reaction of the patient, or of later complication, without mention of misadventure at the time of the procedure; Y92.89 Other specified places as the place of occurrence of the external cause
CPT/HCPCS: 36415; 71045; 80053; 84703; 85025; 96374; 99284; J2270